=== PATIENT | female | born 1975 | race African-American/Black ===

== ENCOUNTER 2017-12-12 14:32 | Observation (INO) ==
[2017-12-12 14:38] VITALS: BMI 48.9
[2017-12-12] MEDS ORDERED: NS 1000 ML 1,000 ML ONE (15:02)
--- NOTE | 2017-12-12 15:19 | RAD ---
History: Chest pain Study: Portable upright AP chest Comparison: None Findings: Lungs are clear and the heart and mediastinum are unremarkable. There is no edema or effusi on. No bony abnormality is demonstrated. Impression: Negative Reported By:
[2017-12-12] MEDS: NITROSTAT SL PRN ×3 (15:20→15:34)
[2017-12-12 15:26] LABS: BASOPHILS # (AUTO) 0.2 X10^3/uL (0.0-0.1); BASOPHILS % (AUTO) 1.4 % (0.2-1.0); EOSINOPHILS # (AUTO) 0.2 x10^3/uL (0.0-0.2); EOSINOPHILS % (AUTO) 1.7 % (0.9-2.9); HEMATOCRIT 26.7 % (36.0-47.0); HEMOGLOBIN 8.3 g/dL (12.0-16.0); LYMPHOCYTES # (AUTO) 2.3 X10^3/uL (1.3-2.9); LYMPHOCYTES % (AUTO) 17.8 % (21.0-51.0); MEAN CORPUSCULAR HEMOGLOBIN 21.2 pg (27.0-34.0); MEAN CORPUSCULAR HGB CONC 31.3 g/dL (33.0-35.0); MEAN PLATELET VOLUME 7.5 fL (7.4-11.0); MONOCYTES # (AUTO) 0.5 x10^3/uL (0.3-0.8); MONOCYTES % (AUTO) 4.2 % (0.0-13.0); NEUTROPHILS # (AUTO) 9.6 x10^3/uL (2.2-4.8); NEUTROPHILS % (AUTO) 74.9 % (42.0-75.0); PLATELET COUNT 297 X10^3/uL (150.0-450.0); RED BLOOD COUNT 3.93 X10^6/uL (3.5-5.4); RED CELL DISTRIBUTION WIDTH 19.8 % (11.6-16.5); WHITE BLOOD COUNT 12.8 X10^3/uL (3.6-10.0)
[2017-12-12 15:39] LABS: ANISOCYTOSIS 2+; HYPOCHROMASIA 2+; MICROCYTOSIS 1+; PLATELET MORPHOLOGY COMMENT NORMAL (NORMAL)
[2017-12-12 15:50] LABS: ALANINE AMINOTRANSFERASE 15 Units/L (12-78); ALKALINE PHOSPHATASE 87 Units/L (46-116); ASPARTATE AMINO TRANSFERASE 16 Units/L (15-37); BLOOD UREA NITROGEN 8 mg/dL (7-18); CALCIUM 8.7 mg/dL (8.5-10.1); CARBON DIOXIDE 26.1 mmol/L (21-32); CHLORIDE 102 mmol/L (98-107); COR CA(FOR HYPOALB) 9.5 mg/dL (8.5-10.1); COR NA(FOR HYPERGLY) 137 mmol/L (136-145); CREATININE 0.88 mg/dL (0.55-1.02); SODIUM 136 mmol/L (136-145); TOTAL PROTEIN 8.2 g/dL (6.4-8.2); eGFR NON BLACK RACES > 60 (>60)
[2017-12-12 15:54] LABS: BILIRUBIN,URINE NEGATIVE (NEGATIVE); BLOOD/HEMOGLOBIN,URINE 1+ (NEGATIVE); GLUCOSE, URINE NEGATIVE (NEGATIVE); KETONES,URINE NEGATIVE (NEGATIVE); LEUKOCYTE ESTERASE ,URINE 3+ (NEGATIVE); NITRITES,URINE NEGATIVE (NEGATIVE); PROTEIN,URINE 2+ (NEGATIVE); UROBILINOGEN,URINE NORMAL (NORMAL)
[2017-12-12 15:57] LABS: APPEARANCE,URINE CLOUDY (CLEAR); COLOR,URINE YELLOW (YELLOW)
[2017-12-12] MEDS ORDERED: NS 1000 ML 1,000 ML IV SCH ×2 (16:00→19:28)
[2017-12-12 16:11] LABS: BACTERIA,URINE 1+ /HPF (NEGATIVE); MUCUS,URINE FEW /HPF (NEGATIVE); SQUAMOUS EPITHELIAL CELL,UR MODERATE /HPF (NEGATIVE); TRICHOMONAS,URINE FEW /HPF (NEGATIVE)
[2017-12-12 16:12] LABS: YEAST,URINE FEW /HPF (NEGATIVE)
[2017-12-12 16:36] LABS: CKMB % 0.9 % (<4); CREATINE KINASE 107 Units/L (26-192); CREATINE KINASE MB < 1.0 ng/mL (0-4.0); TROPONIN I < 0.02 ng/mL (0-1.5)
[2017-12-12] MEDS: K-LYTE EFFERVESCENT PO SCH (17:23)
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
[2017-12-12 20:10] LABS: CKMB % 1.1 % (<4); CREATINE KINASE 91 Units/L (26-192); CREATINE KINASE MB < 1.0 ng/mL (0-4.0); TROPONIN I < 0.02 ng/mL (0-1.5)
[2017-12-12 21:34] LABS: CKMB % 1.1 % (<4); CREATINE KINASE 93 Units/L (26-192); CREATINE KINASE MB < 1.0 ng/mL (0-4.0); TROPONIN I < 0.02 ng/mL (0-1.5)
[2017-12-13 03:16] LABS: CKMB % 1.2 % (<4); CREATINE KINASE 82 Units/L (26-192); CREATINE KINASE MB < 1.0 ng/mL (0-4.0); TROPONIN I < 0.02 ng/mL (0-1.5)
--- NOTE | 2017-12-13 06:40 | RAD ---
HISTORY: Chest pain Study: Chest AP portable Comparison: 12/12/2017 Findings: The heart is mildly enlarged. No congestive heart failure is noted. No infiltrates are identified. No pleural effusions are present. The bony thorax is unremarkable. IMPRESSION: Mild cardiomegaly without congestive heart failure Lungs clear Reported By:
[2017-12-13 06:42] LABS: CHOL/HDL RATIO 4.9 (0.0-5.0); CHOLESTEROL 147 mg/dL (0-200); CKMB % 1.2 % (<4); CREATINE KINASE 84 Units/L (26-192); CREATINE KINASE MB < 1.0 ng/mL (0-4.0); HDL CHOLESTEROL 30 mg/dL (40-60); TRIGLYCERIDES 118 mg/dL (0-150); TROPONIN I < 0.02 ng/mL (0-1.5)
[2017-12-13] MEDS: K-LYTE EFFERVESCENT PO SCH (08:55)
[2017-12-13 10:09] VITALS: BP 131/58
--- NOTE | 2017-12-20 12:51 | DR.CARTERS ---
Short Stay Summary - Admission Date Date of Admission: 12/12/17 - Discharge Date Discharge Date: 12/13/17 - Admission Diagnoses (1) Chest pain Status: Acute (2) Urinary tract infection Status: Acute - Discharge Medications Discharge Medications: Home Medication List cephalexin [Keflex] 500 mg PO QID 12/12/17 [History] sertraline [Zoloft] 1 tab PO DAILY 12/12/17 [History] ciprofloxacin HCl [Cipro] 500 mg PO BID #20 tab 12/13/17 [Rx] iron-folic acid-mv, min cmb#15 [Hemocyte-Plus] 1 cap PO QAM #30 cap 12/13/17 [Rx ] Prescriptions: ciprofloxacin HCl [Cipro] Jerome Herbert iron-folic acid-mv, min cmb#15 [Hemocyte-Plus] Jerome Herbert - Discharge Plan Disposition: 01 HOME, SELF-CARE Condition: Stable Prescriptions: ciprofloxacin HCl [Cipro] 500 mg PO BID #20 tab iron-folic acid-mv, min cmb#15 [Hemocyte-Plus] 1 cap PO QAM #30 cap - Follow up/Referrals Follow up/Referrals: NFD,None [Primary Care Provider] - 12/20/17 9:00 am - Instructions Instructions: Anemia, Urinary Tract Infection, Adult, [id number], Degenerative Disk Disease, Angina Pectoris, [id number] Additional Instructions: DIET TOLERATED. ACTIVITY TOLERATED.
== END 2017-12-13 12:05 | disposition home or self-care (01) ==
LOC: ER 14:32 → MED/SURG 14:32
PROVIDERS: ADMIT Internal Medicine; ATTEND Internal Medicine
DX: M47.896 Other spondylosis, lumbar region; M79.602 Pain in left arm; E87.6 Hypokalemia; R07.2 Precordial pain; R73.09 Other abnormal glucose; R94.31 Abnormal electrocardiogram [ECG] [EKG]; N39.0 Urinary tract infection, site not specified
CPT/HCPCS: 36415; 71010; 71045; 80053; 80061; 81001; 82550; 82553; 84484; 85025; 85610; 85730; 87086; 93005; 94760; 96365; 96367; 99284; A4216; A4222; G0378; J7030; J8499